=== PATIENT | male | born 1990 | race Caucasian/White ===

== ENCOUNTER 2025-02-16 14:57 | Inpatient (IN) | payer BC ==
[~2025-02-16] VITALS: Ht 170.2 cm; Wt 92.5 kg
[2025-02-16] MEDS ORDERED: IV NS 0.9% 250 ML IV ONE (15:12)
[2025-02-16] MEDS ORDERED: IOHEXOL-350 100 ML VIAL IV ONE (15:12)
[2025-02-16 15:17] LABS: PLATELET COUNT (AUTO) 297 K/uL (150-450); RED BLOOD CELL COUNT(AUTO) 5.56 MIL/uL (4.5-6.0); RED CELL DISTRIBUTION WIDTH 12.9 % (11.5-15.0); WHITE BLOOD COUNT (AUTO) 8.2 K/uL (4.3-11.0)
[2025-02-16 15:23] LABS: CALCIUM, SERUM 9.1 mg/dL (8.5-10.1); CREATININE 1.2 mg/dL (0.6-1.3); SODIUM SERUM 139.0 mmol/L (136-145); UREA NITROGEN, BLOOD 15.0 mg/dL (7-18)
[2025-02-16 15:29] LABS: INR 0.99 (0.91-1.10)
[2025-02-16 17:01] LABS: APPEARANCE,URINE CLEAR (CLEAR); BLOOD, URINE NEGATIVE Ery/uL (NEGATIVE); LEUKOCYTE ESTERASE ,URINE NEGATIVE (NEGATIVE); NITRITE, URINE NEGATIVE (NEGATIVE); UGLUCOSE NEGATIVE (NEGATIVE)
[2025-02-16] MEDS ORDERED: escitalopram oxalate PO (17:01)
[2025-02-16 20:00] VITALS: BP 108/71; TEMP 98.1; O2SAT 96
[2025-02-16] MEDS ORDERED: ACETAMINOPHEN 325 MG TABLET PO PRN (20:00)
[2025-02-16 20:40] VITALS: BP 118/70
[2025-02-16 21:38] LABS: PLATELET COUNT (AUTO) 287 K/uL (150-450); RED BLOOD CELL COUNT(AUTO) 5.02 MIL/uL (4.5-6.0); RED CELL DISTRIBUTION WIDTH 12.7 % (11.5-15.0); WHITE BLOOD COUNT (AUTO) 9.0 K/uL (4.3-11.0)
[2025-02-16 21:49] LABS: ERYTHROCYTE SEDIMENTATION RATE < 1 MM/HR (0-15)
[2025-02-16 21:52] LABS: INR 1.01 (0.91-1.10)
[2025-02-16 21:53] LABS: CALCIUM, SERUM 8.5 mg/dL (8.5-10.1); CREATININE 1.0 mg/dL (0.6-1.3); SODIUM SERUM 141 mmol/L (136-145); UREA NITROGEN, BLOOD 19 mg/dL (7-18)
[2025-02-16 21:59] LABS: ASPARTATE AMINOTRANSFERASE 13 U/L (15-37); TOTAL PROTEIN, SERUM 6.7 g/dL (6.4-8.2)
[2025-02-16 22:04] LABS: LDL 115 mg/dL (0-99)
[2025-02-16 22:09] LABS: AMPHETAMINE, URINE NEGATIVE (NEGATIVE); BARBITURATE, URINE NEGATIVE (NEGATIVE); BENZODIAZEPINE, URINE NEGATIVE (NEGATIVE); CANNABINOID, URINE NEGATIVE (NEGATIVE); COCCAINE, URINE NEGATIVE (NEGATIVE); OPIATE, URINE NEGATIVE (NEGATIVE)
[2025-02-17] VITALS: BP 101/64; TEMP 97.9; O2SAT 96
[2025-02-17 08:00] VITALS: BP 89/52; TEMP 98.2; O2SAT 96
[2025-02-17] MEDS: ASPIRIN EC 81 MG TABLET.DR PO SCH (08:35)
[2025-02-17] MEDS ORDERED: Aspirin Ec PO (10:34)
[2025-02-17 12:00] VITALS: BP 120/84; TEMP 98.1; O2SAT 98
[2025-02-17 15:57] VITALS: BP 102/76; TEMP 97.9; O2SAT 98
== END 2025-02-17 17:00 | disposition home or self-care (01) | DRG 69 ==
LOC: ER 15:03 → TELE 16:58
PROVIDERS: ADMIT Nurse Practitioner Acute Care; ATTEND Nurse Practitioner Acute Care
DX: G45.9 Transient cerebral ischemic attack, unspecified (principal); R29.700 NIHSS score 0; Z88.2 Allergy status to sulfonamides
CPT/HCPCS: 36415; 70450-TC; 70496-TC; 70498-TC; 70551-TC; 80048-TC; 80053-TC; 80061-TC; 82962-TC; 84443-TC; 85025-TC; 85652-TC; 85730-TC; 86140-TC; 92526; 92611; 97112-TC; 97116-TC; 97530-TC; G0378; J7050; Q9967